=== PATIENT | male | born 1930 | race Caucasian/White ===

== ENCOUNTER 2017-09-08 08:58 | Observation (INO) | payer OTHER, MEDICARE ==
[~2017-09-08] VITALS: Ht 170.2 cm; Wt 83.9 kg
[~2017-09-08 08:58] MED LIST: AMLODIPINE BESY10 M1 PO; ARICEPT5 M1 PO; ASPIRIN81 M4 PO; ATORVASTATIN CA20 M1 PO; LISINOPRIL20 M1 PO; METOPROLOL TART25 M1 PO; NITROGLYCERIN0.4 M1 SL; PLAVIX75 M1 PO; QUETIAPINE FUMA25 M1 PO; SIMVASTATIN20 M2 PO; TYLENOL #31 TAB PO
--- NOTE | 2017-09-08 09:01 | ED CARDIAC/CP/PALPITATIONS ---
History of Present Illness General Chief Complaint: Chest Pain Stated Complaint: BIBA FOR CHEST PAIN Source: patient, family, old records Exam Limitations: poor historian Vital Signs & Intake/Output Vital Signs & Intake/Output Vital Signs Date Time Temp Pulse Resp B/P B/P Pulse O2 O2 Flow FiO2 Mean Ox Delivery Rate 09/08 0842 99 20 127/72 98 Nasal 2.0L Cannula 09/08 906 98.2 79 20 142/86 98 Room Air 09/08 899 96 Nasal 2.0L Cannula Allergies Coded Allergies: NO KNOWN ALLERGIES (10/07/14) NKA PER ANTIBIOTIC ORDER SHEET - SJS Reconcile Medications Amlodipine Besylate 10 MG TABLET 1 TAB PO DAILY HEART/BP (Reported) Aspirin (Aspirin*) 81 MG TAB.CHEW 81 MG PO DAILY GA Clopidogrel Bisulfate (Plavix) 75 MG TABLET 75 MG PO DAILY CHEST PAIN . Donepezil HCl (Aricept) 5 MG TABLET 5 MG PO QPM DEMENTIA Lisinopril 20 MG TABLET 1 TAB PO DAILY HEART/BP (Reported) Metoprolol Tartrate 25 MG TABLET 25 MG PO BID GA Nitroglycerin 0.4 MG TAB.SUBL 1 TAB SL AD CHEST PAIN 1st sign of attack; may repeat every 5 minutes until relief; if pain persists after 3 tablets in 15 minutes, prompt medical att Quetiapine Fumarate 25 MG TABLET 25 MG PO BID DEMENTIA Simvastatin (Simvastatin*) 20 MG TABLET 1 TAB PO QHS CHOLESTEROL (Reported) Triage Nurses Notes Reviewed? yes Onset: Abrupt Duration: hour(s): (FEW) Timing: multiple episodes today Quality/Severity: pressure Activities at Onset: sleep Nitro Today/Relief: 0.4 mg x 3 Aspirin Today: 325 mg x 1 HPI: This is an 87 year old male with history of hypertension, dyslipidemia, and STEMI, severe aortic stenosis who presents via EMS from home for chief complaint of chest pain that woke him up from sleep. He was given 3 subungual nitroglycerin by the visiting nurse which she states resolved the pain. He then reported a short time later that his pain had returned. History of admission for an STEMI in August 2017. Patient denies feeling short of breath but admitted he felt sort of sweaty at home. Patient reports pain right now this time substernal but is unable to qualify or quantify it. Pain does not radiate anywhere. Past History Travel History Traveled to [place] past 21 day No Medical History Any Pertinent Medical History? see below for history Neurological: dementia Cardiovascular: aortic stenosis, hypertension, hyperlipidemia, myocardial infarction, severe ; D1 Respiratory: NONE Gastrointestinal: NONE Hepatic: NONE Renal: chronic kidney disease Musculoskeletal: NONE Psychiatric: NONE Endocrine: NONE Blood Disorders: NONE Cancer(s): NONE RESEARCH ASSOCIATE MOLECULAR BIOLOGY/Reproductive: NONE History of MRSA: No History of VRE: No History of CDIFF: No Surgical History Surgical History: non-contributory, bilateral cataract surgery Psychosocial History Who do you live with Patient/Self Services at Home Home Health Aide (Should have one in theory) What is your primary language [place]guillan Tobacco Use: Quit >30 days ago ETOH Use: QUIT 1950 Family History Hx Contributory? No Review of Systems Review of Systems Constitutional: Reports: diaphoresis. Denies: chills, fever. EENTM: Reports: no symptoms. Respiratory: Reports: no symptoms. Cardiovascular: Reports: chest pain. Denies: palpitations. GI: Denies: abdominal pain. Genitourinary: Reports: no symptoms. Musculoskeletal: Reports: no symptoms. Skin: Reports: no symptoms. Neurological/Psychological: Reports: no symptoms. Hematologic/Endocrine: Denies: bruising, bleeding. Immunologic/Allergic: Reports: no symptoms. All Other Systems: Reviewed and Negative Physical Exam Physical Exam General Appearance: well developed/nourished, alert, awake Head: atraumatic, normal appearance Eyes: Bilateral: normal appearance, PERRL, EOMI. Ears, Nose, Throat: normal pharynx, normal ENT inspection, hearing grossly normal Neck: normal inspection, supple, full range of motion Respiratory: normal breath sounds, chest non-tender, no respiratory distress Cardiovascular: regular rate/rhythm, systolic murmur Peripheral Pulses: 2+ radial (R), 2+ radial (L) Gastrointestinal: normal bowel sounds, soft, non-tender Rectal: BROWN, OB POSITIVE Extremities: normal inspection, normal capillary refill, normal range of motion, calf tenderness Skin: intact, normal color, warm/dry Core Measures ACS in differential dx? Yes CVA/TIA Diagnosis No Sepsis Present: No Sepsis Focused Exam Completed? No Progress Differential Diagnosis: AMI, aortic dissection, costochondritis, myocarditis, pericarditis Plan of Care: Orders Procedure Date/time Status Heart Healthy Diet 09/08 L Active Intake & Output 09/08 1123 Active Patient Data 09/[address] in observation 09/08 1040 Active URINALYSIS 09/08 1037 Active ED Holding Orders 09/08 1015 Active Vital Signs 09/08 1015 Active Code Status 09/08 1015 Active TYPE & SCREEN (NOT X-MATCH) 09/08 0911 Complete Telemetry/Cv Tech 09/08 899 Active TROPONIN LEVEL 09/08 899 Complete PARTIAL THROMBOPLASTIN TIME 09/08 899 Complete PROTHROMBIN TIME 09/08 899 Complete COMPREHENSIVE METABOLIC PANEL 09/08 899 Complete CBC WITHOUT DIFFERENTIAL 09/08 09 Complete EKG 09/08 0859 Active Current Medications Sig/Taye Start time Last Medication Dose Stop Time Status Admin Heparin Sodium 25,000 UNIT Q24H 09/08 101 AC 09/08 (Porcine) 09/09 1014 1040 (Heparin) Sodium Chloride 500 ML Laboratory Tests 09/08/17 1115: Urine Color Pending, Urine Clarity Pending, Urine pH Pending, Ur Specific [place] Pending, Urine Protein Pending, Urine Ketones Pending, Urine Nitrite Pending, Urine Bilirubin Pending, Urine Urobilinogen Pending, Ur Leukocyte Esterase Pending, Ur Microscopic Pending, Urine Hemoglobin Pending, Urine Glucose Pending 09/08/17 0910: Anion Gap 11, Estimated GFR 34 L, BUN/Creatinine Ratio 13.2, Glucose 132 H, Calcium 10.0, Total Bilirubin 0.1 L, AST 21, ALT 37, Alkaline Phosphatase 149 H, Troponin I 0.41 *H, Total Protein 6.6, Albumin 3.8, Globulin 2.8, Albumin/ Globulin Ratio 1.4, PT 10.7, INR 1.02, APTT 31, CBC w Diff NO MAN DIFF REQ, RBC 2.76 L, MCV 88.7, MCH 29.4, RDW 13.2, MPV 8.0, Gran % 89.5 H, Lymphocytes % 6.3 L, Monocytes % 2.8, Eosinophils % 1.2, Basophils % 0.2, Absolute Granulocytes 12.9 H, Absolute Lymphocytes 0.9 L, Absolute Monocytes 0.4, Absolute Eosinophils 0.2, Absolute Basophils 0, PUBS MCHC 33.1 ' I spoke to his son Federico Rai who states that his father was just a Joelle Maurer MD's office the other day and had outpatient blood work which revealed elevated troponin and anemia which appears to be new for him. States that he has history of severe cardiac disease as well as aortic stenosis and would not like anything aggressive or interventional on the patient and to be kept comfortable. He agrees however for transfusion and admission. 10:06 AM CARDIOLOGY PAGED. TROP 0.41. PAIN MUCH IMPROVED AFTER SL NITRO. Diagnostic Imaging: Viewed by Me: Radiology Read. Discussed w/RAD: Radiology Read. CXR Impression: PATIENT: KAREEM DEE PRESENT AGE: 87 PATIENT ACCOUNT NO: [id number] : 30 LOCATION: [facility] ORDERING PHYSICIAN: Marisol Varela MD SERVICE DATE: 09/08/17 EXAM TYPE: RAD - XRY-PORTABLE CHEST XRAY EXAMINATION: XR PORTABLE CHEST CLINICAL INFORMATION: Chest pain. Evaluate the mediastinum. COMPARISON: CXR from 06/13/2017 and 08/17/2017 TECHNIQUE: Portable frontal view of the chest was obtained. FINDINGS: Cardiomegaly and enlarged hilar vessels. Persistent interstitial thickening -- predominantly in mid and lower lung zones, consistent with interstitial edema. No significant pleural fluid is detected on this AP view of the chest. Atherosclerotic calcification of the aortic arch. No appreciable change in the size or contour of the mediastinum compared to 08/17/2017. The visualized bones are intact. IMPRESSION: Cardiomegaly with persistent or recurrent cardiogenic pulmonary edema. DICTATED BY: Slava Razo MD DATE/TIME DICTATED:09/08/17925 JAVA WEB APPLICATION DEVELOPER:JOANNE DATE/TIME TRANSCRIBED:09/08/17925 CONFIDENTIAL, DO NOT COPY WITHOUT APPROPRIATE AUTHORIZATION. <Electronically signed in Other Vendor System> SIGNED BY: Slava Razo MD 09/08/17932 Initial ED EKG: NSR, ST depression (1, AVL, V4-V6) Prior EKG: unchanged Rhythm Strip: normal sinus rhythm Departure Departure Time of Disposition: 1015 Disposition: STILL A PATIENT Condition: Stable Clinical Impression Primary Impression: ACS (acute coronary syndrome) Referrals: Joelle Maurer MD (PCP/Family) Departure Forms: Customer Survey General Discharge Information Admission Note Documentation of Exam: Documentation of any treatments & extenuating circumstances including Concerns Regarding Discharge (functional status, medication knowledge or non-compliance, living conditions, etc.) that warrant an admission rather than observation: ] Observation Note Spoke With: Apergis MD,Yiannis Place Patient In: Non-ED OBS Care Area Rationale for Observation: My rational for observation is as follows [[TELE MONITOR, IV HEPARIN, ASPIRIN, NITRATES, SERIAL EKG/TROPONIN, CONSULT DR ACOSTA]. Critical Care Note Critical Care Note Critical Care Time: non-applicable
[2017-09-08 09:26] LABS: ABSOLUTE BASOPHIL COUNT 0 /CUMM (0.0-0.2); ABSOLUTE EOSINOPHIL COUNT 0.2 /CUMM (0.0-0.7); ABSOLUTE GRANULOCYTE CT 12.9 /CUMM (1.4-6.5); ABSOLUTE LYMPH COUNT 0.9 /CUMM (1.2-3.4); ABSOLUTE MONOCYTE COUNT 0.4 /CUMM (0.10-0.60); BASOPHIL % 0.2 % (0.0-2.0); EOSINOPHIL % 1.2 % (0-5); HEMATOCRIT 24.5 % (42-52); MEAN CORPUSCULAR HGB 29.4 PG (27.0-31.0); MEAN CORPUSCULAR HGB CONC 33.1 G/DL (33.0-37.0); MEAN CORPUSCULAR VOLUME 88.7 FL (80.0-94.0); PLATELET COUNT 383 /CUMM (130-400); RBC DISTRIBUTION WIDTH 13.2 % (11.5-14.5); RED BLOOD CELL CT 2.76 /CUMM (4.70-6.10); WHITE BLOOD CELL COUNT 14.4 /CUMM (4.8-10.8)
--- NOTE | 2017-09-08 09:33 | RADIOLOGY REPORT ---
EXAMINATION: XR PORTABLE CHEST CLINICAL INFORMATION: Chest pain. Evaluate the mediastinum. COMPARISON: CXR from 06/13/2017 and 08/17/2017 TECHNIQUE: Portable frontal view of the chest was obtained. FINDINGS: Cardiomegaly and enlarged hilar vessels. Persistent interstitial thickening -- predominantly in mid and lower lung zones, consistent with interstitial edema. No significant pleural fluid is detected on this AP view of the chest. Atherosclerotic calcification of the aortic arch. No appreciable change in the size or contour of the mediastinum compared to 08/17/2017. The visualized bones are intact. IMPRESSION: Cardiomegaly with persistent or recurrent cardiogenic pulmonary edema.
[2017-09-08 09:43] LABS: PT 10.7 SEC (9.4-12.5); PTT 31 SEC (25-37)
[2017-09-08 09:52] LABS: GRANULOCYTE % 89.5 % (42.2-75.2)
--- NOTE | 2017-09-08 11:37 | History & Physical ---
General Information and HPI MD Statement: I have seen and personally examined KAREEM DEE and documented this H&P. The patient is a 87 year old M who presented with a patient stated chief complaint of [CP]. Source of Information: patient, family, old records Exam Limitations: dementia, poor historian History of Present Illness: This is an 87 yo male with PMH of HTN, hyperlipidemia, dementia,Severe (peak gradient 80mmHg in ), previous NSTEMIs, most recently seen at in with peak trops of 18 who comes in for CC of chest pain. Pt is a poor historian so details were corroborated by aide at bedside. Pt had sudden onset of a heart burn like sensation substernally that is not radiating to jaw or left arm. At its peak he had 8/10 pain that woke him up from sleep. Around 7 am his aide gave him 3 nitro with some resolution of his chest pain. During admission he rated CP at 4/10. Pt has remote hx of smoking, and does not drink or engage in IVDA. He lives in elderly housing with 24 hr aide. Pt was seen and evaluated by Dr. Rodríguez group cardiology during last admission and pt was recommended for cath and TAVR but family requests conservative mgmt given pt's age and co-morbidities. Note that outpatient troponin done on Sep 06, 2017 was .84. Allergies/Medications Allergies: Coded Allergies: NO KNOWN ALLERGIES (NONE 09/08/17) NKA PER ANTIBIOTIC ORDER SHEET - SJS Home Med list Amlodipine Besylate 10 MG TABLET 1 TAB PO DAILY HEART/BP (Reported) Aspirin (Aspirin*) 81 MG TAB.CHEW 81 MG PO DAILY PR Clopidogrel Bisulfate (Plavix) 75 MG TABLET 75 MG PO DAILY CHEST PAIN . Donepezil HCl (Aricept) 5 MG TABLET 5 MG PO QPM DEMENTIA Lisinopril 20 MG TABLET 1 TAB PO DAILY HEART/BP (Reported) Metoprolol Tartrate 25 MG TABLET 25 MG PO BID PR Nitroglycerin 0.4 MG TAB.SUBL 1 TAB SL AD CHEST PAIN 1st sign of attack; may repeat every 5 minutes until relief; if pain persists after 3 tablets in 15 minutes, prompt medical att Quetiapine Fumarate 25 MG TABLET 25 MG PO BID DEMENTIA Simvastatin (Simvastatin*) 20 MG TABLET 1 TAB PO QHS CHOLESTEROL (Reported) Compliance With Home Meds: GOOD Past History Travel History Traveled to [place] past 21 day No Medical History Neurological: dementia Cardiovascular: aortic stenosis, hypertension, hyperlipidemia, myocardial infarction, severe ; D1 Respiratory: NONE Gastrointestinal: NONE Hepatic: NONE Renal: chronic kidney disease Musculoskeletal: NONE Psychiatric: NONE Endocrine: NONE Blood Disorders: NONE Cancer(s): NONE APPLICATION SYSTEMS ARCHITECT/Reproductive: NONE History of MRSA: No History of VRE: No History of CDIFF: No Surgical History Surgical History: non-contributory, bilateral cataract surgery Past Family/Social History Psychosocial History Who Do You Live With? self Services at Home: Home Health Aide (Should have one in theory) Primary Language: Armenian ETOH Use: QUIT 1949 Functional Ability ADLs Needs Assist: dressing, eating, toileting, bathing. Ambulation: walker IADLs Needs Assist: shopping, housework, finances, food prep, telephone, transportation, medication admin. Review of Systems Review of Systems Constitutional: Denies: chills, fever, malaise. EENTM: Denies: blurred vision, visual changes. Cardiovascular: Reports: chest pain, peripheral edema. Denies: palpitations. Respiratory: Denies: cough, short of breath. GI: Reports: abdominal pain. Denies: bloating, constipation, diarrhea. Genitourinary: Reports: no symptoms. Musculoskeletal: Reports: no symptoms. Skin: Reports: no symptoms. Exam & Diagnostic Data Last 24 Hrs of Vital Signs/I&O Vital Signs Date Time Temp Pulse Resp B/P B/P Pulse O2 O2 Flow FiO2 Mean Ox Delivery Rate 09/08 0942 99 20 127/72 98 Nasal 2.0L Cannula 09/08 0907 98.2 79 20 142/86 98 Room Air 09/08 0900 96 Nasal 2.0L Cannula Intake & Output 09/08 1600 09/08 0800 09/08 0000 Intake Total 150 Output Total Balance 150 Intake, Oral 150 Patient 83.915 kg Weight Weight Reported by Patient Measurement Method Physical Exam General Appearance Alert, Oriented X3, Cooperative, No Acute Distress Skin No Rashes, No Significant Lesion HEENT Atraumatic, PERRLA, Mucous Membr. moist/pink Neck Supple Cardiovascular tachycardic with 3/6 systolic creshendo-decresendo murmur at RUSB and radiating to carotid Lungs Clear to Auscultation, Normal Air Movement Abdomen pt complains of epigastric tenderness in abdomen. Not worsened by palpation. No rebound or guarding. +bsx4 Extremities 2+ edema in LE Last 24 Hrs of Labs/Lang: Laboratory Tests 09/08/17 1115: Urine Color YEL, Urine Clarity CLEAR, Urine pH 6.0, Ur Specific [place] 1.015, Urine Protein 30 H, Urine Ketones NEG, Urine Nitrite NEG, Urine Bilirubin NEG, Urine Urobilinogen 0.2, Ur Leukocyte Esterase NEG, Ur Microscopic SEDIMENT EXAMINED, Urine RBC RARE, Urine Hemoglobin NEG, Urine Glucose NEG 09/08/17 0910: Anion Gap 11, Estimated GFR 34 L, BUN/Creatinine Ratio 13.2, Glucose 132 H, Calcium 10.0, Total Bilirubin 0.1 L, AST 21, ALT 37, Alkaline Phosphatase 149 H, Troponin I 0.41 *H, Total Protein 6.6, Albumin 3.8, Globulin 2.8, Albumin/ Globulin Ratio 1.4, PT 10.7, INR 1.02, APTT 31, CBC w Diff NO MAN DIFF REQ, RBC 2.76 L, MCV 88.7, MCH 29.4, RDW 13.2, MPV 8.0, Gran % 89.5 H, Lymphocytes % 6.3 L, Monocytes % 2.8, Eosinophils % 1.2, Basophils % 0.2, Absolute Granulocytes 12.9 H, Absolute Lymphocytes 0.9 L, Absolute Monocytes 0.4, Absolute Eosinophils 0.2, Absolute Basophils 0, PUBS MCHC 33.1 Assessment/Plan Assessment: This is an 87 yo male with PMH of HTN, hyperlipidemia, dementia,Severe (peak gradient 80mmHg in ), previous NSTEMIs, most recently seen at in with peak trops of 18 who comes in for CC of chest pain. The combination of severe and its associated LVH and likely CAD in this gentleman is causing increased demand in the setting of decreased perfusion and producing his anginal symptoms. Pt's PENNIE score at 5 giving him 26.2% fourteen day risk of , recurrent PR. Though he would benefit from TAVR and coronary revascularization, given his signfiicant dementia and underlying co-morbidities, the family wishes to proceed with medical management at this time. ED Work up shows: CBC: WBC 14.4, HB 8.1, HCT 24.5 BMP: BUN 25, Cr 1.9 Trop .41 CXR: Cardiomegaly with persistent or recurrent cardiogenic pulmonary edema EKG rate 92, NSR with diffuse ST depressions In ED pt was started on Heparin drip. He already got ASA 325. I got paged around 3pm that pt had large maroon BM. PLAN: 1. Angina Pectoris: Likely a combination of severe and CAD is driving pt's angina. He has peak trops of 18 in Aug 2017. Follow up outpt visit shows trop of .8. Today at .4. Pt has CKD3 which is likely preventing him from clearing trops as well. His trops are actually trending down at this time, however, the CP is new. His Echo in Aug 2017 shows no wall motion abnormalities, EF 55%, Mild l. atrial dilation, mod mitral regurg and severe . * Trop and EKG 1700 * Trop and EKG 2300 * Nitro PRN chest pain * Morphine is also on for PRN chest pain * Starting Ranexa 500po BID per wood gluer * STOPPING Heparin drip per wood gluer * Appreciate cardiology recs * Cont' ASA. Got full dose today. Will con't 81mg starting tomorrow * Con't Plavix * Con't Metoprolol * Con't Statin * No need for repeat Echo at this time 2. Anemia: Hb 8.1. On D/C in Aug 9.7. In ED, on heparin, had large maroon BM. * Repeat CBC * Type and cross * Transfuse for goal Hb >8/24 3. Severe : Peak gradient at 80mmHG. Pt would benefit from TAVR but family wishes to pursue medical management at this time. * Pt pre-load dependent monitor BP and avoid hypotension * Holding amlodipine 10mg * Will con't Lisinopril 20mg 4. CKD3: Pt has BUN 25 and Cr 1.9 today. This seems to be his baseline during previous admission. * Con't monitor * avoid nephrotoxins 5. Leukocytosis: Pt has WBC 14.4 today. During previous admission he had persistent leukocytosis up to 12 as well. He is afebrile and his only complaint is "heart burn like pain" that is in his epigastrium. This pain seems to amerliorate with nitro. If leukocytosis worsens or pt c/o worsening pain would consider abdominal imaging to eval for possible source of infection. DNR/DNI Regualr diet As Ranked By This Provider Problem List: 1. Non-STEMI (non-ST elevated myocardial infarction) 2. Elevated troponin 3. Aortic stenosis Core Measures/Misc (05/21) Acute Coronary Syndrome ACS Diagnosis: Yes Last Known EF % 5 Congestive Heart Failure Congestive Heart Failure Diagnosis No Cerebrovascular Accident CVA/TIA Diagnosis: No VTE (View Protocol) VTE Risk Factors Acute Medical Illness No Mechanical VTE Prophylaxis d/t N/A MechProphylax Ordered No VTE Pharm Prophylaxis d/t NA PharmProphylax ordered Sepsis (View protocol) Sepsis Present: No
--- NOTE | 2017-09-08 15:01 | Cons- Cardiology ---
General Information and HPI Consulting Request Date of Consult: 09/08/17 Requested By: Paresh Blum MD Reason for Consult: Chest pain, aortic stenosis Source of Information: patient, old records Exam Limitations: dementia History of Present Illness: This is an 87-year-old male with a past medical history of prior myocardial infarction, severe aortic stenosis with recurrent angina (his power of insurance attorney has repeatedly declined further intervention), dementia, chronic kidney disease, hypertension, hyperlipidemia who was recently discharged from [facility] after non-ST elevation myocardial infarction and his family again decided on conservative management. He was discharged with nursing care and now returns to the emergency room with moderate intensity left sided chest discomfort with some response to sublingual nitroglycerin; no reported radiation, he denied significant shortness of breath. He does note some dark stools recently. Denies diaphoresis or palpitations. Denies recent syncope. Has mild confusion at baseline which appeared to be grossly unchanged. On my interview with him in the emergency room he was resting comfortably and reported minimal residual chest discomfort. Allergies/Medications Allergies: Coded Allergies: NO KNOWN ALLERGIES (NONE 09/08/17) NKA PER ANTIBIOTIC ORDER SHEET - [facility] Home Med List: Amlodipine Besylate 10 MG TABLET 1 TAB PO DAILY HEART/BP (Reported) Aspirin (Aspirin*) 81 MG TAB.CHEW 81 MG PO DAILY VT Clopidogrel Bisulfate (Plavix) 75 MG TABLET 75 MG PO DAILY CHEST PAIN . Donepezil HCl (Aricept) 5 MG TABLET 5 MG PO QPM DEMENTIA Lisinopril 20 MG TABLET 1 TAB PO DAILY HEART/BP (Reported) Metoprolol Tartrate 25 MG TABLET 25 MG PO BID VT Nitroglycerin 0.4 MG TAB.SUBL 1 TAB SL AD CHEST PAIN 1st sign of attack; may repeat every 5 minutes until relief; if pain persists after 3 tablets in 15 minutes, prompt medical att Quetiapine Fumarate 25 MG TABLET 25 MG PO BID DEMENTIA Simvastatin (Simvastatin*) 20 MG TABLET 1 TAB PO QHS CHOLESTEROL (Reported) Current Medications: Current Medications Sig/Taye Start time Last Medication Dose Route Stop Time Status Admin Acetaminophen 650 MG Q6P PRN 09/08 1345 AC PO Heparin Sodium 0 .STK-MED ONE 09/08 1022 DC (Porcine) .ROUTE Heparin Sodium 4,000 UNIT ONCE ONE 09/08 1015 DC 09/08 (Porcine) IV 09/08 1016 1040 Heparin Sodium 25,000 UNIT Q24H 09/08 1015 DC 09/08 (Porcine) IV 09/09 1014 1040 Sodium Chloride 500 ML Morphine Sulfate 2 MG Q4P PRN 09/08 1345 AC IV Nitroglycerin 0 .STK-MED ONE 09/08 0929 DC SL Nitroglycerin 0.4 MG ONCE ONE 09/08 0915 DC 09/08 SL 09/08 0916 0929 Ondansetron HCl 4 MG Q8P PRN 09/08 1330 AC IV Oxycodone/ 1 TAB Q6P PRN 09/08 1345 AC Acetaminophen PO Ranolazine 500 MG BID 09/08 1420 AC PO Review of Systems Review of Systems: Review of systems as per HPI. The remainder of a 10 point review of systems was reviewed and was otherwise negative. Past History Travel History Traveled to [place] past 21 day No Medical History Neurological: dementia Cardiovascular: aortic stenosis, hypertension, hyperlipidemia, myocardial infarction, severe ; D1 Respiratory: NONE Gastrointestinal: NONE Hepatic: NONE Renal: chronic kidney disease Musculoskeletal: NONE Psychiatric: NONE Endocrine: NONE Blood Disorders: NONE Cancer(s): NONE ASSISTANT SHIFT SUPERVISOR/Reproductive: NONE Surgical History Surgical History: non-contributory, bilateral cataract surgery Psychosocial History Who Do You Live With? self Services at Home: Home Health Aide (Should have one in theory) Primary Language: Iranian ETOH Use: QUIT 1949 Functional Ability ADLs Needs Assist: dressing, eating, toileting, bathing. Ambulation: walker IADLs Needs Assist: shopping, housework, finances, food prep, telephone, transportation, medication admin. Exam & Diagnostic Data Vital Signs and I&O Vital Signs Date Time Temp Pulse Resp B/P B/P Pulse O2 O2 Flow FiO2 Mean Ox Delivery Rate 09/08 1436 98.2 99 20 127/72 09/08 0942 99 20 127/72 98 Nasal 2.0L Cannula 09/08 906 98.2 79 20 142/86 98 Room Air 09/08 899 96 Nasal 2.0L Cannula Intake & Output 09/08 0809/08 0000 09/07 1600 09/07 0000 Intake Total 150 Output Total Balance 150 Intake, Oral 150 Patient 185 lb Weight Weight Reported by Patient Measurement Method Physical Exam: General: Confused but alert Eyes: No obvious scleral icterus. HEENT: No jugular venous distention or abnormal jugular venous pulsations. Cardiovascular: Normal intensity S1/S2. 3/6 systolic murmur Respiratory: Lungs clear to auscultation bilaterally. Abdomen: Soft, nontender with no guarding or rebound tenderness. Musculoskeletal: No clubbing or cyanosis noted Skin: warm Neurologic: No gross focal deficits noted. Labs/Lang Results: Laboratory Tests 09/08 09/08 1115 0910 Chemistry Sodium (137 - 145 mmol/L) 139 Potassium (3.5 - 5.1 mmol/L) 4.9 Chloride (98 - 107 mmol/L) 107 Carbon Dioxide (22 - 30 mmol/L) 20 L Anion Gap (5 - 16) 11 BUN (9 - 20 mg/dL) 25 H Creatinine (0.7 - 1.2 mg/dL) 1.9 H Estimated GFR (>60 ml/min) 34 L BUN/Creatinine Ratio (7 - 25 %) 13.2 Glucose (65 - 99 mg/dL) 132 H Calcium (8.4 - 10.2 mg/dL) 10.0 Total Bilirubin (0.2 - 1.3 mg/dL) 0.1 L AST (17 - 59 U/L) 21 ALT (21 - 72 U/L) 37 Alkaline Phosphatase (< 127 U/L) 149 H Troponin I (<0.11 ng/ml) 0.41 *H Total Protein (6.3 - 8.2 g/dL) 6.6 Albumin (3.5 - 5.0 g/dL) 3.8 Globulin (1.9 - 4.2 gm/dL) 2.8 Albumin/Globulin Ratio (1.1 - 2.2 %) 1.4 Coagulation PT (9.4 - 12.5 SEC) 10.7 INR (0.90 - 1.17) 1.02 APTT (25 - 37 SEC) 31 Hematology CBC w Diff NO MAN DIFF REQ WBC (4.8 - 10.8 /CUMM) 14.4 H RBC (4.70 - 6.10 /CUMM) 2.76 L Hgb (14.0 - 18.0 G/DL) 8.1 L Hct (42 - 52 %) 24.5 L MCV (80.0 - 94.0 FL) 88.7 MCH (27.0 - 31.0 PG) 29.4 RDW (11.5 - 14.5 %) 13.2 Plt Count (130 - 400 /CUMM) 383 MPV (7.4 - 10.4 FL) 8.0 Gran % (42.2 - 75.2 %) 89.5 H Lymphocytes % (20.5 - 51.1 %) 6.3 L Monocytes % (1.7 - 9.3 %) 2.8 Eosinophils % (0 - 5 %) 1.2 Basophils % (0.0 - 2.0 %) 0.2 Absolute Granulocytes (1.4 - 6.5 /CUMM) 12.9 H Absolute Lymphocytes (1.2 - 3.4 /CUMM) 0.9 L Absolute Monocytes (0.10 - 0.60 /CUMM) 0.4 Absolute Eosinophils (0.0 - 0.7 /CUMM) 0.2 Absolute Basophils (0.0 - 0.2 /CUMM) 0 PUBS MCHC (33.0 - 37.0 G/DL) 33.1 Urines Urine Color (YEL,AMB,STR) YEL Urine Clarity (CLEAR) CLEAR Urine pH (5.0 - 8.0) 6.0 Ur Specific [place] (1.001 - 1.035) 1.015 Urine Protein (NEG,<30 MG/DL) 30 H Urine Ketones (NEG) NEG Urine Nitrite (NEG) NEG Urine Bilirubin (NEG) NEG Urine Urobilinogen (0.1 - 1.0 EU/dl) 0.2 Ur Leukocyte Esterase (NEG) NEG Ur Microscopic SEDIMENT EXAMINED Urine RBC (0 - 5 /HPF) RARE Urine Hemoglobin (NEG) NEG Urine Glucose (N MG/DL) NEG Diagnostic Data EKG Results Tracing was personally reviewed and shows sinus rhythm with sinus arrhythmia at 92 bpm with nonspecific STT abnormality CXR Results Cardiomegaly with persistent or recurrent cardiogenic pulmonary edema. Other Results ER telemetry tracings were personally reviewed and shows sinus rhythm Recent echocardiogram Left ventricular cavity size normal. Left ventricular wall thickness mildly increased. No obvious regional wall motion abnormalities. Left ventricular ejection fraction is estimated at > 55 %. Normal right ventricular size and function. Mild left atrial dilatation. Moderate mitral regurgitation. [id number] tricuspid regurgitation. Unable to estimate the right ventricular systolic pressure. Severe aortic stenosis (peak gradient of 80 mmHg). Torrey Lai M.D. (Electronically Signed) Final Date: 18 August 2017 10:00 Assessment/Plan Assessment/Plan 1. Recurrent angina 2. Severe aortic stenosis; POA repeatedly has declined cath/TAVR 3. CKD 4. Dementia 5. Hypertension 6. Hyperlipidemia 7. Mild troponin elevation consistent with type II myocardial infarction 8. Anemia; progressive 9. Recent non-ST elevation myocardial infarction (Type I) Patient presents with recurrent chest discomfort which is likely due to underlying suspected coronary artery disease with known severe aortic stenosis. I have previously discussed the patient's poor prognosis with his family at length in the setting of severe aortic stenosis without intervention including the likely possibility of recurrent anginal episodes/VT. They have repeatedly opted for medical management which is unfortunately limited. As this is unlikely due to plaque rupture I would not initiate repeat heparin drip at this time. Can consider adding Ranexa 500 mg by mouth twice a day for additional antianginal management; I had been hesitant to start on standing Imdur given the risk of iatrogenic hypotension in the setting of known severe aortic stenosis; can continue with the as needed sublingual nitroglycerin for now. Would again discuss goals of care including if his family wishes for him to continue to undergo recurrent hospitalization in the future. The patient does have evidence of progressive anemia which may be a contributing to his symptoms and he did tell me that he had some recent dark stools; consider stool guaiac and may require GI consultation if guaiac positive. Venu Lai MD [facility] Consult Acknowledgment - Thank you for your consult request.
[2017-09-08 15:47] LABS: ABSOLUTE BASOPHIL COUNT 0 /CUMM (0.0-0.2); ABSOLUTE EOSINOPHIL COUNT 0 /CUMM (0.0-0.7); ABSOLUTE GRANULOCYTE CT 15.8 /CUMM (1.4-6.5); ABSOLUTE LYMPH COUNT 0.9 /CUMM (1.2-3.4); ABSOLUTE MONOCYTE COUNT 0.5 /CUMM (0.10-0.60); BASOPHIL % 0.3 % (0.0-2.0); EOSINOPHIL % 0.3 % (0-5); HEMATOCRIT 22.2 % (42-52); MEAN CORPUSCULAR HGB 29.6 PG (27.0-31.0); MEAN CORPUSCULAR HGB CONC 33.4 G/DL (33.0-37.0); MEAN CORPUSCULAR VOLUME 88.8 FL (80.0-94.0); MEAN PLATELET VOLUME 8.2 FL (7.4-10.4); PLATELET COUNT 378 /CUMM (130-400); RBC DISTRIBUTION WIDTH 13.4 % (11.5-14.5); RED BLOOD CELL CT 2.51 /CUMM (4.70-6.10); WHITE BLOOD CELL COUNT 17.3 /CUMM (4.8-10.8)
[2017-09-08 16:14] LABS: GRANULOCYTE % 91.5 % (42.2-75.2)
--- NOTE | 2017-09-08 21:16 | Admission Certification ---
Admission Certification Certification Statement - As attending physician, I certify that at the time of - admission, based on clinical presentation, severity of - symptoms, need for further diagnostic testing and - therapeutic interventions, and risk of adverse outcomes - without in-hospital treatment, in my clinical assessment, - this patient requires an acute hospital stay for a minimum - of two nights or longer. I have also considered psychsocial - factors such as support system, advanced age, financial - issues, cognitive issues, and failed out-patient treatments, - past re-admission history, safety of patient, and lack of - compliance as applicable. Specific rationale supporting this admission is: Severe Aortic stenosis and NSTEMI
--- NOTE | 2017-09-08 21:22 | PN- Att Addend ---
Attending Addendum Attending Brief Note Laboratory Tests 09/08/17 1740: Troponin I 1.43 *H 09/08/17 1737: CBC w Diff Cancelled, WBC Cancelled, RBC Cancelled, Hgb Cancelled, Hct Cancelled , MCV Cancelled, MCH Cancelled, RDW Cancelled, Plt Count Cancelled, MPV Cancelled, PUBS MCHC Cancelled 09/08/17 1546: CBC w Diff Cancelled, WBC Cancelled, RBC Cancelled, Hgb Cancelled, Hct Cancelled , MCV Cancelled, MCH Cancelled, RDW Cancelled, Plt Count Cancelled, MPV Cancelled, PUBS MCHC Cancelled 09/08/17 1520: CBC w Diff MAN DIFF ORDERED, RBC 2.51 L, MCV 88.8, MCH 29.6, RDW 13.4, MPV 8.2, Gran % 91.5 H, Lymphocytes % 5.2 L, Monocytes % 2.7, Eosinophils % 0.3, Basophils % 0.3, Absolute Granulocytes 15.8 H, Segmented Neutrophils 91 H, Absolute Lymphocytes 0.9 L, Lymphocytes 4 L, Monocytes 5, Absolute Monocytes 0.5, Absolute Eosinophils 0, Absolute Basophils 0, Platelet Estimate VERIFIED BY SMEAR, Normocytic RBCs VERIFIED, Normochromic RBCs VERIFIED, PUBS MCHC 33.4 09/08/17 1115: Urine Color YEL, Urine Clarity CLEAR, Urine pH 6.0, Ur Specific [place] 1.015, Urine Protein 30 H, Urine Ketones NEG, Urine Nitrite NEG, Urine Bilirubin NEG, Urine Urobilinogen 0.2, Ur Leukocyte Esterase NEG, Ur Microscopic SEDIMENT EXAMINED, Urine RBC RARE, Urine Hemoglobin NEG, Urine Glucose NEG 09/08/17 0910: Anion Gap 11, Estimated GFR 34 L, BUN/Creatinine Ratio 13.2, Glucose 132 H, Calcium 10.0, Total Bilirubin 0.1 L, AST 21, ALT 37, Alkaline Phosphatase 149 H, Troponin I 0.41 *H, Total Protein 6.6, Albumin 3.8, Globulin 2.8, Albumin/ Globulin Ratio 1.4, PT 10.7, INR 1.02, APTT 31, CBC w Diff NO MAN DIFF REQ, RBC 2.76 L, MCV 88.7, MCH 29.4, RDW 13.2, MPV 8.0, Gran % 89.5 H, Lymphocytes % 6.3 L, Monocytes % 2.8, Eosinophils % 1.2, Basophils % 0.2, Absolute Granulocytes 12.9 H, Absolute Lymphocytes 0.9 L, Absolute Monocytes 0.4, Absolute Eosinophils 0.2, Absolute Basophils 0, PUBS MCHC 33.1 Vital Signs Date Time Temp Pulse Resp B/P B/P Pulse O2 O2 Flow FiO2 Mean Ox Delivery Rate 09/08 1914 98.5 108 20 112/72 95 Room Air 09/08 171 98.2 106 18 124/68 09/08 1712 106 18 124/68 95 Nasal 2.0L Cannula 09/08 1527 98.2 105 18 120/74 09/08 1526 98.2 105 18 120/74 09/08 1509 105 18 120/74 95 Nasal 2.0L Cannula 09/08 1436 98.2 99 20 127/72 09/08 0942 99 20 127/72 98 Nasal 2.0L Cannula 09/08 0907 98.2 79 20 142/86 98 Room Air 09/08 0900 96 Nasal 2.0L Cannula 87 yr old male with pmh of HTN, HLD, Dementia, Severe , Recent NSTEMI type 1 in Aug 2017 admitted with chest pain. Pt found to have mild trop elevation in ER and is being admitted to telemetry for further management. Type 2 NC- medical management as per cardiology. Added Ranexa. Hold Norvasx. Severe - family refusing surgical management with TAVR. wants medical management which is limited. pt lives at home with 24 hr home and family living professor. dw/ pt and pts aide at bedside the care plan.
[2017-09-08 22:45] VITALS: BP 112/72
[2017-09-09 00:48] LABS: ABSOLUTE BASOPHIL COUNT 0.1 /CUMM (0.0-0.2); ABSOLUTE EOSINOPHIL COUNT 0 /CUMM (0.0-0.7); ABSOLUTE GRANULOCYTE CT 13.3 /CUMM (1.4-6.5); ABSOLUTE LYMPH COUNT 0.8 /CUMM (1.2-3.4); ABSOLUTE MONOCYTE COUNT 0.5 /CUMM (0.10-0.60); BASOPHIL % 0.4 % (0.0-2.0); EOSINOPHIL % 0 % (0-5); GRANULOCYTE % 90.4 % (42.2-75.2); HEMATOCRIT 23.3 % (42-52); MEAN CORPUSCULAR HGB CONC 32.8 G/DL (33.0-37.0); MEAN CORPUSCULAR VOLUME 88.4 FL (80.0-94.0); MEAN PLATELET VOLUME 8.7 FL (7.4-10.4); PLATELET COUNT 328 /CUMM (130-400); RBC DISTRIBUTION WIDTH 13.6 % (11.5-14.5); RED BLOOD CELL CT 2.63 /CUMM (4.70-6.10); WHITE BLOOD CELL COUNT 14.8 /CUMM (4.8-10.8)
--- NOTE | 2017-09-09 02:11 | Event Note ---
Event Note Event Note: S:Troponin elevated to 8.83 B: Patient has severe with numerous admissions recently as a result with elevated troponins. He also currently has a lower GI bleed and is a second unit of PRBC. Goal of care discussions with the family have been had both on this admission and in the past and they do not wish to pursue aggerssive management. AR: EKG does not show any significant ST segment changes from previous ekg, patient was seen and assessed at bedside. He was resting comfortably and in no acute distress. He denies any chest pain, shortness of breath, diaphoreses. He does complain of a nonproductive cough with mild pain associated with the cough. On exam patient is disoriented which is his baseline, appears pale, S1 and S2 were normal with a systolic murmur, lungs were clear to auscultation with no w/r /r. Given the current GI bleed, he is not a candidate for heparin. Based on his family's wishes we will not be pursuing aggressive measures. We will recheck trop and EKG in 6 hours and sign out to the day team to follow-up with cardiology. This plan was discussed with the cesart, Dr. Flowers.
[2017-09-09 03:32] VITALS: BP 106/68
[2017-09-09 06:35] VITALS: BP 106/66
[2017-09-09 08:16] LABS: ABSOLUTE BASOPHIL COUNT 0 /CUMM (0.0-0.2); ABSOLUTE EOSINOPHIL COUNT 0 /CUMM (0.0-0.7); ABSOLUTE GRANULOCYTE CT 13.6 /CUMM (1.4-6.5); ABSOLUTE LYMPH COUNT 1.1 /CUMM (1.2-3.4); ABSOLUTE MONOCYTE COUNT 0.7 /CUMM (0.10-0.60); BASOPHIL % 0 % (0.0-2.0); EOSINOPHIL % 0.1 % (0-5); GRANULOCYTE % 88.2 % (42.2-75.2); MEAN CORPUSCULAR HGB 29.8 PG (27.0-31.0); MEAN CORPUSCULAR HGB CONC 33.7 G/DL (33.0-37.0); MEAN CORPUSCULAR VOLUME 88.5 FL (80.0-94.0); MEAN PLATELET VOLUME 8.9 FL (7.4-10.4); PLATELET COUNT 299 /CUMM (130-400); RBC DISTRIBUTION WIDTH 13.6 % (11.5-14.5); RED BLOOD CELL CT 2.94 /CUMM (4.70-6.10); WHITE BLOOD CELL COUNT 15.4 /CUMM (4.8-10.8)
--- NOTE | 2017-09-09 09:25 | Event Note ---
Event Note Event Note: Patient was having high troponin, GI bleed and getting transfusions. We called family to inform patients clinical status. Discussed with the both Sons ,Ms Flor and Ms Caballero about his father's situation including gastrointestinal bleeding leading to demand ischemia and elevated troponin. He also had Severe , which they refused for interventions in past and now complicated by recurrent non-ST elevation ID. We also discussed about intervention that he needed including colonoscopy/endoscopy and angiography in future. According to both, as the patient has severe Alzheimer's disease, they do not want to do any active interventions, as it will not improve quality of life. They wanted to make him comfortable.I discussed with them about the comfort care, that we will give symptomatic treatment and will not treat the disease. I also make them aware regarding hospice care.They were willing for that.They wanted to have discussion with attending, Dr. Valdes. We changed CODE STATUS from DNR/DNI to comfort care. Dr. Valdes is aware of the situation.
--- NOTE | 2017-09-09 10:21 | PN- Cardiology ---
Subjective Subjective: * Patient reports discomfort in his abdomen. No chest discomfort or shortness of breath. * creatinine is 1.8 * increasing troponin to 26.7 Objective Vital Signs and I&Os Vital Signs Date Time Temp Pulse Resp B/P B/P Pulse O2 O2 Flow FiO2 Mean Ox Delivery Rate 09/09 08 Nasal 1.5L Cannula 09/09 0635 98.5 85 18 106/66 94 Nasal 1.5L Cannula 09/09 0332 100.0 82 20 106/68 92 09/08 2325 100 112/72 09/08 2324 100 112/72 09/08 2245 98.2 100 18 112/72 93 Nasal 1.5L Cannula 09/08 2200 Nasal 1.5L Cannula 09/08 1915 98.5 108 20 112/72 95 Room Air 09/08 1717 98.2 106 18 124/68 09/08 1712 106 18 124/68 95 Nasal 2.0L Cannula 09/08 1527 98.2 105 18 120/74 09/08 1526 98.2 105 18 120/74 09/08 1509 105 18 120/74 95 Nasal 2.0L Cannula 09/08 1436 98.2 99 20 127/72 Intake & Output 09/09 1600 09/09 0809/09 0000 09/08 1600 09/08 0809/08 0000 Intake Total 550 150 Output Total 300 350 120 Balance 250 -350 30 Intake, IV 550 Intake, Oral 150 Number 2 1 Bowel Movements Output, Urine 300 350 120 Patient 185 lb Weight Weight Reported by Patient Measurement Method Physical Exam: General: WD/WN male in NAD; alert and oriented x 3 Neck: no JVD Heart: RRR with 2/6 systolic murmur Lungs: clear bilaterally Extremities: no edema Assessment/Plan Assessment/Plan * Due to the patient's age, dementia and comorbidities the patient has been made comfort care. Consideration should be given to minimizing narcotics since the patient has no pain other than some constipation which the narcotics are likely worsening. In addition, his cardiac medications that were stopped will likely serve him well at minimizing any chest discomfort that he may have or shortness of breath although he is comfortable at the present time with medications still in his system. It is understood that therapy to prolong life or invasive procedures are note desired. At present, the patient does not appear hemodynamically unstable or in extremis. Continue telemetry? No
--- NOTE | 2017-09-09 14:31 | PN- Housestaff ---
Annabel MEJÍA,Arun 09/09/17 1431: Subjective Follow-up For: f/u Severe NSTMI GI bleed Complaints: mild chest pain Tele-Events Since Last Visit: NSR, 89 -108 Subjective: patient is seen and examined at bed side. He was having mild dicomfort. He was forgetful at times. he was on 1.5L of nasal cannula.Overnight he has 3 episodes of bloody diarrhea, needed blood transfusion. In morning he started having high troponins.We had family meeting, with his son and daughter in law.We discussed about his condition, and interventions he needed.They presued no active interventions. On their request we chaged code to comfort care. They also requested for home hospice care, which will be done on Monday. Review of Systems Constitutional: Reports: no symptoms. Gastrointestinal: Reports: abdominal pain. Objective Last 24 Hrs of Vital Signs/I&O Vital Signs Date Time Temp Pulse Resp B/P B/P Pulse O2 O2 Flow FiO2 Mean Ox Delivery Rate 09/09 2002 99.1 104 18 116/72 95 Room Air 09/09 1447 98.3 102 18 110/68 95 Room Air 09/09 0800 Nasal 1.5L Cannula 09/09 0635 98.5 85 18 106/66 94 Nasal 1.5L Cannula 09/09 0332 100.0 82 20 106/68 92 09/08 2325 100 112/72 09/08 2324 100 112/72 09/08 2245 98.2 100 18 112/72 93 Nasal 1.5L Cannula 09/08 2200 Nasal 1.5L Cannula Intake & Output 09/09 1600 09/09 0800 09/09 0000 Intake Total 500 550 Output Total 600 300 350 Balance -100 250 -350 Intake, IV 550 Intake, Oral 500 Number 2 1 Bowel Movements Output, Urine 600 300 350 Physical Exam General Appearance: Alert Cardiovascular: Normal S1, Normal S2 Lungs: MILD BASILAR CRACKLES Abdomen: Soft, epigastric tenderness Extremities: No Clubbing, No Cyanosis, No Edema Assessment/Plan Assessment: This is an 87 yo male with PMH of HTN, hyperlipidemia, dementia,Severe (peak gradient 80mmHg in ), previous NSTEMIs, most recently seen at in with peak trops of 18 who comes in for CC of chest pain. Patient was having high troponin, GI bleed and getting transfusions. We called family to inform patients clinical status. Discussed with the both Sons ,Ms Flor and Ms Caballero about his father's clinical condition including gastrointestinal bleeding leading to demand ischemia and elevated troponin. He also had Severe , which they refused for interventions in past and now complicated by recurrent non-ST elevation RI. We also discussed about intervention that he needed including colonoscopy/endoscopy and angiography in future. According to both, as the patient has severe Alzheimer's disease, they do not want to do any active interventions, as it will not improve quality of life. They wanted to make him comfortable.I discussed with them about the comfort care, that we will give symptomatic treatment and will not treat the disease. I also make them aware regarding hospice care.They were willing for that.They wanted to have discussion with attending, Dr. Valdes. We changed CODE STATUS from DNR/DNI to comfort care. * we started patient on Morphine as needed * Discontinued telemetry * We chaged Diet to regular * Stopped other medicaions. * Code status - Comfort care Problem List: 1. Acute on chronic renal failure 2. Chronic kidney disease 3. ACS (acute coronary syndrome) Pain Ratin (cannt comment) Pain Location: epigastrium Pain Goal: Remain pain free Pain Plan: morphine as needed Tomorrow's Labs & Rationales: n/a DVT/Prophylaxis: n/a Marcelo Valdes 09/09/17 1432: Attending Review Statement Attending Statement Attending MD Statement: examined this patient, discuss w/resident/PA/ANIMAL MAINTENANCE SUPERVISOR, agreed w/resident/PA/ANIMAL MAINTENANCE SUPERVISOR, discussed with family, reviewed EMR data (avail), discussed with nursing, discussed with case mgmt, reviewed images, amended to note Attending Assessment/Plan: 87 yr old male with pmh of HTN, HLD, Dementia, Severe , Recent NSTEMI type 1 in Aug 2017, recent progressive neurocognitive decline admitted with chest pain found to have elevated cardiac enzymes trop 27 recurrent injury to heart and also anemia of blood loss with blood in stool as per family. Patient is difficult and challenging sitaution where anticoagulation could be detrimental to him in view of his post transfusion of 2 units of PRBCs. Patient with advanced dementia and family/POA declining repeated attempts to cardiac catheterization. Patient had repeated hospitalisations for the similar complaints. It would be imperative to respect patient/family wishes and consider end cardiac palliative option. (recurrent NSTEMI in severe aortic stenosis and also suggested by cardiology in past) I had at length discussion at family meeting with resident/ therapeutic case manager with son TESSIE who declined aggressive cardiac measures and interested in hospice and comfort measures. Family wishes hospice eval. DNR/DNI.
[2017-09-09 14:47] VITALS: BP 110/68
[2017-09-09 20:03] VITALS: BP 116/72
[2017-09-09 22:20] VITALS: BP 118/72
[2017-09-10 06:42] VITALS: BP 120/60
[2017-09-10 09:45] LABS: ABSOLUTE BASOPHIL COUNT 0 /CUMM (0.0-0.2); ABSOLUTE EOSINOPHIL COUNT 0.2 /CUMM (0.0-0.7); ABSOLUTE GRANULOCYTE CT 11.9 /CUMM (1.4-6.5); ABSOLUTE LYMPH COUNT 1.7 /CUMM (1.2-3.4); ABSOLUTE MONOCYTE COUNT 0.9 /CUMM (0.10-0.60); BASOPHIL % 0.1 % (0.0-2.0); EOSINOPHIL % 1.6 % (0-5); GRANULOCYTE % 80.4 % (42.2-75.2); MEAN CORPUSCULAR HGB 29.9 PG (27.0-31.0); MEAN CORPUSCULAR HGB CONC 33.7 G/DL (33.0-37.0); MEAN CORPUSCULAR VOLUME 88.7 FL (80.0-94.0); MEAN PLATELET VOLUME 8.3 FL (7.4-10.4); PLATELET COUNT 314 /CUMM (130-400); RBC DISTRIBUTION WIDTH 13.9 % (11.5-14.5); RED BLOOD CELL CT 2.93 /CUMM (4.70-6.10); WHITE BLOOD CELL COUNT 14.8 /CUMM (4.8-10.8)
--- NOTE | 2017-09-10 14:17 | PN- Att Addend ---
Attending Addendum Attending Brief Note Patient seen/examined bedside. Patient denies any new complaints. He is tolerating PO. Awaiting hospice eval for home hospice. Please see my progress note 09/09/17 for discussion with family. Admission Lab Results I reviewed the following labs: Laboratory Tests 09/10 0847 Chemistry Sodium (137 - 145 mmol/L) 141 Potassium (3.5 - 5.1 mmol/L) 4.7 Chloride (98 - 107 mmol/L) 113 H Carbon Dioxide (22 - 30 mmol/L) 19 L Anion Gap (5 - 16) 9 BUN (9 - 20 mg/dL) 28 H Creatinine (0.7 - 1.2 mg/dL) 2.0 H Estimated GFR (>60 ml/min) 32 L BUN/Creatinine Ratio (7 - 25 %) 14.0 Hematology CBC w Diff NO MAN DIFF REQ WBC (4.8 - 10.8 /CUMM) 14.8 H RBC (4.70 - 6.10 /CUMM) 2.93 L Hgb (14.0 - 18.0 G/DL) 8.8 L Hct (42 - 52 %) 26.0 L MCV (80.0 - 94.0 FL) 88.7 MCH (27.0 - 31.0 PG) 29.9 RDW (11.5 - 14.5 %) 13.9 Plt Count (130 - 400 /CUMM) 314 MPV (7.4 - 10.4 FL) 8.3 Gran % (42.2 - 75.2 %) 80.4 H Lymphocytes % (20.5 - 51.1 %) 11.6 L Monocytes % (1.7 - 9.3 %) 6.3 Eosinophils % (0 - 5 %) 1.6 Basophils % (0.0 - 2.0 %) 0.1 Absolute Granulocytes (1.4 - 6.5 /CUMM) 11.9 H Absolute Lymphocytes (1.2 - 3.4 /CUMM) 1.7 Absolute Monocytes (0.10 - 0.60 /CUMM) 0.9 H Absolute Eosinophils (0.0 - 0.7 /CUMM) 0.2 Absolute Basophils (0.0 - 0.2 /CUMM) 0 PUBS MCHC (33.0 - 37.0 G/DL) 33.7
[2017-09-10 15:11] VITALS: BP 120/70
[2017-09-10 23:14] VITALS: BP 110/50
[2017-09-11 06:55] VITALS: BP 108/64
--- NOTE | 2017-09-11 08:24 | PN- Housestaff ---
Alejandro MEJÍA,[facility] 09/11/17 0824: Subjective Follow-up For: GI Bleed NSTEMI Subjective: No acute events overnight. Pt has no complaints. Happily eating breakfast. Review of Systems Constitutional: Reports: no symptoms. Cardiovascular: Reports: no symptoms. Respiratory: Reports: no symptoms. Gastrointestinal: Reports: no symptoms. Genitourinary: Reports: no symptoms. Musculoskeletal: Reports: no symptoms. Objective Last 24 Hrs of Vital Signs/I&O Vital Signs Date Time Temp Pulse Resp B/P B/P Pulse O2 O2 Flow FiO2 Mean Ox Delivery Rate 09/11 654 98.5 88 18 108/64 94 Room Air Physical Exam General Appearance: Alert, Cooperative, No Acute Distress Skin Temp/Moisture Exam: Warm/Dry Cardiovascular: systolic murmur Lungs: Clear to Auscultation, Normal Air Movement Abdomen: Normal Bowel Sounds, Soft, No Tenderness Extremities: 2+ radial pulses Current Medications: Current Medications Sig/Taye Start time Last Medication Dose Route Stop Time Status Admin Morphine Sulfate 2 MG Q2P PRN 09/09 1000 DCD IV Morphine Sulfate 2 MG Q4P PRN 09/08 1345 DCD IV Ondansetron HCl 4 MG Q8P PRN 09/08 1330 DCD IV Assessment/Plan Assessment: This is an 87 yo male with PMH of HTN, hyperlipidemia, dementia,Severe (peak gradient 80mmHg in ), previous NSTEMIs, most recently seen at in with peak trops of 18 who comes in for CC of chest pain. #goals of care Patient was having high troponin, GI bleed and getting transfusions. We called family to inform patients clinical status. Discussed with the both Sons ,Ms Flor and Ms Caballero about his father's clinical condition including gastrointestinal bleeding leading to demand ischemia and elevated troponin. He also had Severe , which they refused for interventions in past and now complicated by recurrent non-ST elevation MO. We also discussed about intervention that he needed including colonoscopy/endoscopy and angiography in future. According to both, as the patient has severe Alzheimer's disease, they do not want to do any active interventions, as it will not improve quality of life. They wanted to make him comfortable.I discussed with them about the comfort care, that we will give symptomatic treatment and will not treat the disease. I also make them aware regarding hospice care.They were willing for that.They wanted to have discussion with attending, Dr. Valdes. We changed CODE STATUS from DNR/DNI to comfort care. * patient being discharged today with home hospice. percocet for pain control, ativan prn for agitation, and zofran prn #Angina Pectoris/NSTEMI: Likely a combination of severe and CAD is driving pt 's angina. He has peak trops of 18 in Aug 2017. Follow up outpt visit shows trop of .8. Today at .4. Pt has CKD3 which is likely preventing him from clearing trops as well. His trops are actually trending down at this time, however, the CP is new. His Echo in Aug 2017 shows no wall motion abnormalities, EF 55%, Mild l. atrial dilation, mod mitral regurg and severe . #. Anemia: Hb 8.1. On D/C in Aug 12.. In ED, on heparin, had large maroon BM. -family does not want any aggressive treatments for his GI bleed #. Severe : Peak gradient at 80mmHG. Pt would benefit from TAVR but family does not wish to pursue medical management at this time. #. CKD3: Last BUN 28 and Cr 2.0. This seems to be his baseline during previous admission. #. Leukocytosis: Last wbc 14.8. During previous admission he had persistent leukocytosis up to 12 as well. He is afebrile and his only complaint is "heart burn like pain" that is in his epigastrium. This pain seems to amerliorate with nitro. If leukocytosis worsens or pt c/o worsening pain would consider abdominal imaging to eval for possible source of infection. #Comfort measures Problem List: 1. GI bleed 2. NSTEMI (non-ST elevated myocardial infarction) 3. Goals of care, counseling/discussion Pain Ratin Pain Location: none Pain Goal: Remain pain free Pain Plan: pathway Tomorrow's Labs & Rationales: none Marcelo Valdes 09/11/17 1222: Attending MD Review Statement Attending Statement Attending MD Statement: examined this patient, discuss w/resident/PA/[facility] TECH, agreed w/resident/PA/[facility] TECH, discussed with family, reviewed EMR data (avail), discussed with nursing, discussed with case mgmt, reviewed images, amended to note Attending Assessment/Plan: No new complaints, tolerating PO diet, discharge to home hospice. f/u o/p PCP in few days of discharge.
[2017-09-11] MEDS ORDERED: SCOPOLAMINE1 EAC1 PAT (10:48)
[2017-09-11] MEDS ORDERED: ZOFRAN4 M2 PO (11:03)
[2017-09-11] MEDS ORDERED: PERCOCET 5-3251 EACH PO (11:03)
[2017-09-11] MEDS ORDERED: ATIVAN0.5 M1 PO (11:03)
--- NOTE | 2017-09-11 11:04 | Patient Discharge Instructions ---
Discharge Instructions General Discharge Information Special Instructions: Please continue hospice care. Please contact your PCP for any new concerns. Please take your medications as perscribed. Acute Coronary Syndrome Inclusion Criteria At DC or during hospital stay patient has or had the following: ACS DIAGNOSIS Yes Discharge Core Measures Meds if any: Prescribed or Continued at Discharge Meds if any: NOT Prescribed or Continued at Discharge Congestive Heart Failure Inclusion Criteria At DC or during hospital stay patient has or had the following: CHF DIAGNOSIS No Discharge Core Measures Meds if any: Prescribed or Continued at Discharge Meds if any: NOT Prescribed or Continued at Discharge Cerebrovascular accident Inclusion Criteria At DC or during hospital stay patient has or had the following: CVA/TIA Diagnosis No Discharge Core Measures Meds if any: Prescribed or Continued at Discharge Meds if any: NOT Prescribed or Continued at Discharge Venous thromboembolism Inclusion Criteria VTE Diagnosis No VTE Type NONE VTE Confirmed by (Test) NONE Discharge Core Measures - Per Current guidelines, there needs to be overlap - treatment for the first 5 days of Warfarin therapy. - If discharged on Warfarin prior to 5 days of - overlap therapy, the patient will need to be - assessed for post discharge needs including - *Post discharge parental anticoagulation - *Warfarin and/or parental anticoagulation education - *Follow up date to check INR post discharge At least 5 days overlap therapy as Inpatient Yes Meds if any: Prescribed or Continued at Discharge Note: Overlap Therapy is Warfarin and Anticoagulant Meds if any: NOT Prescribed or Continued at Discharge
--- NOTE | 2017-09-12 01:35 | Discharge Summary ---
Visit Information Visit Dates Admission Date: 09/08/17 Discharge Date: 09/11/17 Hospital Course Course Attending Physician: Paresh Blum MD Primary Care Physician: Joelle Maurer MD Hospital Course: A: 87 yo male with PMH of HTN, hyperlipidemia, dementia,severe (peak gradient 80mmHg in ), previous NSTEMIs, most recently seen at in with peak trops of 18 who comes in for CC of chest pain found to have NSTEMI and GI Bleed. #recurrent angina/NSTEMI The patient presented with angina and was recently seen at [facility] on Aug 20 for a previous NSTEMI. He was found to have elevated troponins. Cardiology believes his current angina is due to a plque rupture. He was started on heparin in the ED however had a dark brown BM. His troponins stepan to 26.7 most likely due to demand ischemia from GI bleed. The patient has a history of Alzheimer's and declined any interventions as it would not improve is QoL. This was discussed between the medical team and the patient's family. The family wanted to make the patient comfortable and symptomatic treatment only. #GI bleed The patient was found to have a dark brown BM after starting heparin as noted above. He was found to be anemic and recieved 2 units of prbc during this admission. The patient's family denied any endoscopy/colonoscopy. #Severe with Peak gradient at 80mmHG The family does not want a TAVR at this time #CKD Last BUN 28 and Cr 2.0. The patient was at his baseline during admission. #Persistent Leukocytosis The patient had leukocytosis during last admission and continued to have leukocytosis during this admission. He was afebrile during this admission. UA/ Ucx and CXR did not find any source of infection. The patient was discharged home with home hospice. Allergies: Coded Allergies: NO KNOWN ALLERGIES (NONE 09/08/17) NKA PER ANTIBIOTIC ORDER SHEET - SJS Disposition Summary Disposition Principal Diagnosis: NSTEMI Additional Diagnosis: GI bleed Discharge Disposition: hospice - home Discharge Instructions General Discharge Information Code Status: Hospice Patient's Diet: Regular Patient's Activity: As tolerated Follow-Up Instructions/Appts: Please continue hospice care. Please contact your PCP for any new concerns. Please take your medications as perscribed. Medications at Discharge Discharge Medications: Stop taking the following medications: Aspirin (Aspirin*) 81 MG TAB.CHEW ORAL DAILY Qty = 30 Clopidogrel Bisulfate (Plavix) 75 MG TABLET ORAL DAILY Qty = 30 Continue taking these medications: Amlodipine Besylate (Amlodipine Besylate) 10 MG TABLET 1 Tablet ORAL DAILY Qty = 90 Comments: DID NOT TAKE IN HOSPITAL Lisinopril (Lisinopril) 20 MG TABLET 1 Tablet ORAL DAILY Qty = 90 Comments: NOT GIVEN WHILE IN HOSPITAL Simvastatin (Simvastatin*) 20 MG TABLET 1 Tablet ORAL TAKE AT BEDTIME Qty = 90 Comments: DID NOT TAKE WHILE IN HOSPITAL Metoprolol Tartrate (Metoprolol Tartrate) 25 MG TABLET 25 Milligram ORAL TWICE DAILY Qty = 60 Comments: DID NOT TAKE IN HOSPITAL Nitroglycerin (Nitroglycerin) 0.4 MG TAB.SUBL 1 Tablet SUBLINGUAL As Directed Qty = 25 Instructions: 1st sign of attack; may repeat every 5 minutes until relief; if pain persists after 3 tablets in 15 minutes, prompt medical att Comments: DID NOT TAKE Donepezil HCl (Aricept) 5 MG TABLET 5 Milligram ORAL Every night Qty = 30 Comments: DID NOT TAKE IN HOSPITAL Quetiapine Fumarate (Quetiapine Fumarate) 25 MG TABLET 25 Milligram ORAL TWICE DAILY Qty = 30 Comments: NOT GIVEN WHILE IN HOSPITAL Start taking the following new medications: Ondansetron HCl (Zofran) 4 MG TABLET 1 Tablet ORAL Every 6-8 Hours as Needed as needed for [place] Qty = 10 No Refills Comments: DID NOT TAKE IN HOSPITAL Lorazepam (Ativan) 0.5 MG TABLET 1 Tablet ORAL Every night as needed Qty = 30 No Refills Comments: DID NOT TAKE IN HOSPITAL Oxycodone HCl/Acetaminophen (Percocet 5-325 MG Tablet) 5 MG-325 MG TABLET 1 Tablet ORAL THREE TIMES DAILY as needed for Pain Qty = 15 No Refills Comments: DID NOT TAKE WHILE IN HOSPITAL Copies To: [place] MEJÍA,Joelle Christensen Attending MD Review Statement Documenting Attending: Lucio MEJÍA,Marcelo Other Findings: 87 yr old male with pmh of HTN, HLD, Dementia, Severe , Recent NSTEMI type 1 in Aug 2017, recent progressive neurocognitive decline admitted with chest pain found to have elevated cardiac enzymes trop 27 recurrent injury to heart and also anemia of blood loss with blood in stool as per family. Patient is difficult and challenging sitaution where anticoagulation could be detrimental to him in view of his post transfusion of 2 units of PRBCs. Patient with advanced dementia and family/POA declining repeated attempts to cardiac catheterization. Patient had repeated hospitalisations for the similar complaints. It would be imperative to respect patient/family wishes and consider end cardiac palliative option. (recurrent NSTEMI in severe aortic stenosis and also suggested by cardiology in past) I had at length discussion at family meeting with resident/ case briefer with son TESSIE who declined aggressive cardiac measures and interested in hospice and comfort measures. Family wishes hospice eval.
== END 2017-09-11 13:29 | disposition home or self-care (01) ==
LOC: ERH 08:58 → 2NA 11:08 → ERHI 11:08 → ENRESERV 20:06 → CANRESERV 20:06 → ENRESERV 20:42 → ENTRNSPT 21:00 → CMPTRNSPT 21:35 → 1NO 22:00 → ENTRNSPT 09-09 19:16 → 2NA 09-09 19:49 → CMPTRNSPT 09-09 19:52 → ENPENDDIS 09-11 12:40 → 2NA 09-11 13:29
PROVIDERS: Emergency Medicine; Internal Medicine; Student in an Organized Health Care Education/Training Program
DX: I21.A1 Myocardial infarction type 2 (principal); Z51.5 Encounter for palliative care; I12.9 Hypertensive chronic kidney disease with stage 1 through stage 4 chronic kidney disease, or unspecified chronic kidney disease; N18.3 Chronic kidney disease, stage 3 (moderate); N17.9 Acute kidney failure, unspecified; E78.5 Hyperlipidemia, unspecified; F03.90 Unspecified dementia, unspecified severity, without behavioral disturbance, psychotic disturbance, mood disturbance, and anxiety; I35.0 Nonrheumatic aortic (valve) stenosis; I25.2 Old myocardial infarction; K92.2 Gastrointestinal hemorrhage, unspecified; I25.10 Atherosclerotic heart disease of native coronary artery without angina pectoris; D72.829 Elevated white blood cell count, unspecified; Z79.82 Long term (current) use of aspirin
CPT/HCPCS: 36415; 71045; 81001; 82436; 86920; 93005; 93010; 96365; 96375; G0378; J1644; J2405; J3490; P9016